=== PATIENT | female | born 1985 | race Caucasian/White ===

== ENCOUNTER 2016-04-27 20:06 | Emergency (ER) | payer OTHER ==
[2016-04-27] MEDS ORDERED: NITROGLYCERIN SL PRN (20:24)
[2016-04-27] MEDS ORDERED: ASPIRIN PO STA (20:24)
[2016-04-27 20:40] LABS: MANUAL DIFF NEEDED? NO
[2016-04-27 20:47] LABS: HEMATOCRIT 43.7 % (37.0-47.0); HEMOGLOBIN 14.4 g/dL (12.0-16.0); RBC 5.08 XMIL (4.2-5.4)
[2016-04-27 20:48] LABS: BASO% 0.4 % (0.0-0.8); EOS# 0.56 X1000 (0.0-0.7); EOS% 3.6 % (0.0-10.0); IMM GRAN# 0.05 X1000 (0.0-0.04); IMM GRAN% 0.3 % (0.0-0.5); LYMPH# 3.13 X1000 (1.2-3.4); LYMPH% 19.8 % (20.5-51.1); MCH 28.3 PG (27-31); MONO# 0.82 X1000 (0.11-0.59); MONO% 5.2 % (1.7-9.3); MPV 9.5 FL (7.4-10.4); NEUT% 70.7 % (42.2-75.2); PLT 372 X1000 (130-400)
[2016-04-27 20:58] LABS: INR 0.96; PTT 28.2 Seconds (22.0-36.0)
[2016-04-27 21:23] LABS: AGAP 13; ALBUMIN 3.9 g/dL (3.5-5.0); ALKALINE PHOSPHATASE 67 U/L (32-104); BUN 12 mg/dL (8-22); CALCIUM 8.8 mg/dL (8.8-10.2); CHLORIDE 98 mmol/L (98-107); CK PROFILE 46 U/L (24-173); COSMO 277; GOT 13 U/L (10-30); GPT 13 U/L (10-36); MAGNESIUM 2.1 mg/dL (1.5-2.7); POTASSIUM 4.6 mmol/L (3.5-5.1); SODIUM 134 mmol/L (136-145); TCO2 23 mmol/L (25-35); TOTAL BILIRUBIN 0.33 mg/dL (0.20-1.00)
[2016-04-27] MEDS ORDERED: PHENERGAN WITH CODEINE LIQUID PO ONE (21:35)
[2016-04-27] MEDS ORDERED: GLUCOPHAGE PO ONE (21:35)
[2016-04-27] MEDS ORDERED: TESSALON PO ONE (21:35)
[2016-04-27] MEDS ORDERED: FLEXERIL PO ONE (21:38)
--- NOTE | 2016-04-27 21:44 | PROVIDER DOCUMENTATION ---
HPI-Chest Pain <Consuelo Fernandes - Last Filed: 04/27/16 21:46> <Librado Carney - Last Filed: 04/28/16 04:54> - General Chief Complaint: Chest Pain Stated Complaint: CP, SOB Time Seen by Provider: 04/27/16 21:11 Allergies/Adverse Reactions: Patient Allergies Allergy/AdvReac Type Severity Reaction Status Date / Time pregabalin [From Lyrica] Allergy Severe SUICIDAL Verified 04/27/16 20:14 THOUGHTS tramadol AdvReac Severe HIVES Verified 04/27/16 20:14 diclofenac [Diclofenac] AdvReac HIVES Verified 04/27/16 20:14 Home Medications: Home Medication List Medication Instructions Recorded Confirmed Last Taken Type Benzonatate [Tessalon] 200 mg PO TID PRN PRN #30 capsule 04/27/16 Unknown Rx Codeine/Promethazine [Phenergan 10 ml PO TID PRN PRN #120 ml 04/27/16 Unknown Rx with Codeine] Cyclobenzaprine [Flexeril] 10 mg PO TID PRN #30 tablet 04/27/16 Unknown Rx Metformin [Glucophage] 500 mg PO BID CC #120 tablet 04/27/16 Unknown Rx - History of Present Illness-CP Nature of Presenting Problem: pt has had a cough for several day that has been dry and hacky without fever and then today developed anterior chest pain that is worse with coughing. She also added that she has not been taking her metformin for several months (Librado Morris) Review of Systems - Adult - REVIEW OF SYSTEMS - ADULT Constitutional: denies: chills, fever Eyes: denies: discharge Ears, Nose, Mouth & Throat: denies: ear pain, sinus problem, throat pain Cardiovascular: reports: chest pain. denies: palpitations Respiratory: reports: cough, wheezing. denies: shortness of breath Gastrointestinal: denies: abdominal pain, diarrhea, nausea, vomiting Genitourinary: denies: dysuria, frequency, flank pain Musculoskeletal: reports: neck pain. denies: muscle aches Integumentary: denies: rash Neurological: denies: headache/migraines, numbness Psychiatric: reports: no symptoms reported Endocrine: reports: no symptoms reported Hematologic/Lymphatic: reports: no symptoms reported Allergic/Immunologic: reports: no symptoms reported All Other Systems: Reviewed and Negative <Librado Carney - Last Filed: 04/28/16 04:54> Past History - Adult - PAST MEDICAL HISTORY-ADULT Review of Records: reports: Old Records Reviewed, Nursing Assessment Review, Medications Reviewed, Social history reviewed & non-contributory. Major Childhood Illnesses: reports: denies history Cardiovascular: reports: hyperlipidemia Respiratory: reports: denies history Gastrointestinal: reports: denies history Obstetrical/Gynecological: reports: denies history Genitourinary: reports: denies history Musculoskeletal: reports: denies history Neurological: reports: denies history Endocrine/Immune: reports: denies history, Diabetes Other Conditions: reports: denies history - PRIOR SURGERIES/PROCEDURES Surgical/Procedure History: reports: appendectomy, BTL, - PRIOR HOSPITALIZATIONS Prior Hospitalizations: reports: none - IMMUNIZATION STATUS Childhood Immunizations: UTD - FAMILY HISTORY Family History: reviewed, not pertinent - SOCIAL HISTORY Smoking: less than 1 pack/day Provider spent 3-5 mins advising pt. on dangers of tobacco.: Discussed manners to quit use, and f/u contacts for add'l counseling. Substance Use: none/never Living Situation: family <Librado Carney - Last Filed: 04/28/16 04:54> Physical Exam-General - PHYSICAL EXAM-ADULT Initial Vital Signs Reviewed: Yes - CONSTITUTIONAL General Appearance: appears well, alert, no apparent distress - EYES Eyes: pink conjunctivae - HEAD, EARS, NOSE, MOUTH & THROAT HENMT: normocephalic/atraumatic, pharynx normal - NECK Neck: non-tender, full range of motion, supple, normal inspection - RESPIRATORY Respiratory: lungs clear, normal breath sounds, no pleuratic chest pain, no respiratory distress, no accessory muscle use. negative: chest non-tender ( marked anterior chest wall tenderness) - CARDIOVASCULAR Cardiovascular: regular rate, rhythm, no edema, no murmur - GASTROINTESTINAL (ABDOMEN) Abdominal Exam: normal bowel sounds, non tender, soft, no organomegaly, no pulsatile mass - MUSCULOSKELETAL Back Exam: normal inspection, no CVA tenderness, no vertebral tenderness Extremity: non-tender, normal gait, normal inspection, no pedal edema, no calf tenderness - SKIN Integumentary: normal color, normal turgor, warm/dry - NEUROLOGIC Neurologic: grossly normal, no motor/sensory deficits - PSYCHIATRIC Psych/Mental Status: normal mood/affect, normal thought content, normal thought process, oriented x 3 <Librado Carney - Last Filed: 04/28/16 04:54> Progress - EKG 1 Time of EKG reading by physician:: 20:11 EKG Read and Signed by:: Librado Carney EKG Interpretation (*Must complete 3 of following elements*): Normal Rate: 84 Rhythm: NSR [place]: normal - XRAY 1 XRAY Study: Chest Impression: Normal XRAY Interpretation: NAD: Dr. Carney(ER MD) <Consuelo Fernandes - Last Filed: 04/27/16 21:46> <Librado Carney - Last Filed: 04/28/16 04:54> - PLAN OF CARE/RESULTS Progress/Plan/Lab Results: Laboratory Tests 04/27/16 04/27/16 04/27/16 20:19 20:19 20:19 WBC 15.77 H RBC 5.08 Hgb 14.4 Hct 43.7 MCV 86.0 MCH 28.3 MCHC 33.0 RDW Std Deviation 14.7 H Plt Count 372 MPV 9.5 Immature Gran % (Auto) 0.3 Neut % (Auto) 70.7 Lymph % (Auto) 19.8 L Young % (Auto) 5.2 Eos % (Auto) 3.6 Baso % (Auto) 0.4 Immature Gran # (Auto) 0.05 H Neut # (Auto) 11.14 H Lymph # (Auto) 3.13 Young # (Auto) 0.82 H Eos # (Auto) 0.56 Baso # (Auto) 0.07 PT INR PTT (Actin FS) D-Dimer Sodium 134 L Potassium 4.6 Chloride 98 Carbon Dioxide 23 L Anion Gap 13 BUN 12 Creatinine 0.8 Estimated GFR/1.73 m2 > 60 BUN/Creatinine Ratio 15 Glucose 253 H Calculated Osmolality 277 Calcium 8.8 Magnesium 2.1 Total Bilirubin 0.33 AST 13 ALT 13 Alkaline Phosphatase 67 Creatine Kinase 46 Troponin T < 0.010 Nxa-S-Hhpdhfndrvy Pept Total Protein 7.0 Albumin 3.9 Globulin 3.1 Albumin/Globulin Ratio 1.3 04/27/16 04/27/16 04/27/16 20:19 20:19 20:19 WBC RBC Hgb Hct MCV MCH MCHC RDW Std Deviation Plt Count MPV Immature Gran % (Auto) Neut % (Auto) Lymph % (Auto) Young % (Auto) Eos % (Auto) Baso % (Auto) Immature Gran # (Auto) Neut # (Auto) Lymph # (Auto) Young # (Auto) Eos # (Auto) Baso # (Auto) PT 10.0 INR 0.96 PTT (Actin FS) 28.2 D-Dimer 0.30 Sodium Potassium Chloride Carbon Dioxide Anion Gap BUN Creatinine Estimated GFR/1.73 m2 BUN/Creatinine Ratio Glucose Calculated Osmolality Calcium Magnesium Total Bilirubin AST ALT Alkaline Phosphatase Creatine Kinase Troponin T Bxh-P-Sdtlvssigie Pept 57 Total Protein Albumin Globulin Albumin/Globulin Ratio Orders Category Date Time Status Cardiac Monitoring DIRECTED Care 04/27/16 20:23 Active Cardiac Monitoring DIRECTED Care 04/27/16 20:24 Inactive Saline Loc NOW Care 04/27/16 20:23 Active Saline Loc NOW Care 04/27/16 20:24 Inactive CHEST-2 VIEWS [RAD] Stat Exams 04/27/16 20:23 Taken CBC WITH ELECTRONIC DIFF [HEME] Stat Lab 04/27/16 20:19 Completed CK PROFILE [SP CHEM] Stat Lab 04/27/16 20:19 Completed COMPREHENSIVE METABOLIC PANEL [CHEM] Stat Lab 04/27/16 20:19 Completed D-DIMER [CHEM] Stat Lab 04/27/16 20:19 Completed MAGNESIUM [CHEM] Stat Lab 04/27/16 20:19 Completed PRO B-NATRIURETIC PEPTIDE Stat Lab 04/27/16 20:19 Completed PROTIME WITH INR [COAG] Stat Lab 04/27/16 20:19 Completed PTT [COAG] Stat Lab 04/27/16 20:19 Completed TROPONIN T Stat Lab 04/27/16 20:19 Completed Aspirin Med 04/27/16 20:24 Discontinued 325 mg PO STAT STA Benzonatate [Tessalon] Med 04/27/16 21:35 Discontinued 200 mg PO NOW ONE Codeine/Promethazine [Phenergan with Codeine Liquid] Med 04/27/16 21:35 Discontinued 10 ml PO NOW ONE Cyclobenzaprine [Flexeril] Med 04/27/16 21:38 Discontinued 10 mg PO NOW ONE Metformin [Glucophage] Med 04/27/16 21:35 Discontinued 500 mg PO NOW ONE Nitroglycerin Sl [Nitroglycerin] Med 04/27/16 20:24 Discontinued 0.4 mg SL Q5M PRN PRN EKG [EKG] Stat Ther 04/27/16 20:14 Ordered Vital Signs Temp Pulse Resp BP Pulse Ox 04/27/16 22:28 72 20 139/102 100 04/27/16 20:15 98.6 F 87 18 141/83 99 pregabalin [From Lyrica] Allergy (Severe, Verified 04/27/16 20:14) SUICIDAL THOUGHTS tramadol Adverse Reaction (Severe, Verified 04/27/16 20:14) HIVES diclofenac [Diclofenac] Adverse Reaction (Verified 04/27/16 20:14) HIVES Benzonatate [Tessalon] 200 mg PO TID PRN PRN #30 capsule 04/27/16 Codeine/Promethazine [Phenergan with Codeine] 10 ml PO TID PRN PRN #120 ml 04/27 Cyclobenzaprine [Flexeril] 10 mg PO TID PRN #30 tablet 04/27/16 Metformin [Glucophage] 500 mg PO BID CC #120 tablet 04/27/16 Laboratory 04/27/16 04/27/16 04/27/16 20:19 20:19 20:19 WBC RBC Hgb Hct MCV MCH MCHC RDW Std Deviation Plt Count MPV Immature Gran % (Auto) Neut % (Auto) Lymph % (Auto) Young % (Auto) Eos % (Auto) Baso % (Auto) Immature Gran # (Auto) Neut # (Auto) Lymph # (Auto) Young # (Auto) Eos # (Auto) Baso # (Auto) PT 10.0 INR 0.96 PTT (Actin FS) 28.2 D-Dimer 0.30 Sodium Potassium Chloride Carbon Dioxide Anion Gap BUN Creatinine Estimated GFR/1.73 m2 BUN/Creatinine Ratio Glucose Calculated Osmolality Calcium Magnesium Total Bilirubin AST ALT Alkaline Phosphatase Creatine Kinase Troponin T Fxc-A-Tipxoporfov Pept 57 Total Protein Albumin Globulin Albumin/Globulin Ratio 04/27/16 04/27/16 04/27/16 20:19 20:19 20:19 WBC 15.77 H RBC 5.08 Hgb 14.4 Hct 43.7 MCV 86.0 MCH 28.3 MCHC 33.0 RDW Std Deviation 14.7 H Plt Count 372 MPV 9.5 Immature Gran % (Auto) 0.3 Neut % (Auto) 70.7 Lymph % (Auto) 19.8 L Young % (Auto) 5.2 Eos % (Auto) 3.6 Baso % (Auto) 0.4 Immature Gran # (Auto) 0.05 H Neut # (Auto) 11.14 H Lymph # (Auto) 3.13 Young # (Auto) 0.82 H Eos # (Auto) 0.56 Baso # (Auto) 0.07 PT INR PTT (Actin FS) D-Dimer Sodium 134 L Potassium 4.6 Chloride 98 Carbon Dioxide 23 L Anion Gap 13 BUN 12 Creatinine 0.8 Estimated GFR/1.73 m2 > 60 BUN/Creatinine Ratio 15 Glucose 253 H Calculated Osmolality 277 Calcium 8.8 Magnesium 2.1 Total Bilirubin 0.33 AST 13 ALT 13 Alkaline Phosphatase 67 Creatine Kinase 46 Troponin T < 0.010 Ryw-I-Ntvkxdrtgwe Pept Total Protein 7.0 Albumin 3.9 Globulin 3.1 Albumin/Globulin Ratio 1.3 (Librado Carney) Departure <Consuelo Fernandes - Last Filed: 04/27/16 21:46> - Departure Time of Disposition Order: 21:39 Certified Medical Emergency: Emergent <Librado Carney - Last Filed: 04/28/16 04:54> - Departure DIAGNOSIS: Costochondritis URI (upper respiratory infection) Qualifiers: URI type: unspecified viral URI Qualified Code(s): J06.9 - Acute upper respiratory infection, unspecified Type 2 diabetes mellitus Qualifiers: Diabetes mellitus complication status: without complication Diabetes mellitus termite technician insulin use: without termite technician use Qualified Code(s): E11.9 - Type 2 diabetes mellitus without complications Disposition: HOME 01 Condition: Fair Additional Instructions: [facility] Qualifications for [facility]: * Live in [place] * 18 - 64 years of age * Have no form of health insurance * Not covered by Medicaid, Medicare, Disability benefits or VA benefits * Meet the financial guidelines In order to be screened for services, patients must first call to answer a few questions and make a screening appt: Phone #: [phone] Services Provided by [facility]: * Primary Care: treatment for acute or chronic illness in adults * DIRECTOR STERILE PROCESSING exams * Blood work/ BP monitoring * Prescription meds (no controlled drugs) * Health education classes * Dental exams, x-rays and extractions Services that ARE NOT provided: * Orthopedic referrals * Pain management or narcotics * testing, control * Physicals or paperwork required by school, work or for legal proceedings * STD testing or treatment * Immunizations * Eye exams, hearing tests ED Follow Up Instructions: You have been treated by a care provider in the Emergency Department. These instructions are being provided to you so you can have an understanding of how to care for yourself upon discharge. Upon discharge from the Emergency Department, you are responsible for making arrangements for follow-up care by a physician of your choice. Take all prescribed medications as directed. Return to the Emergency Department immediately for any new or worsening symptoms. You may call the Physician Referral phone number at [phone] to obtain a list of Physicians who are taking new patients. Prescriptions: Cyclobenzaprine [Flexeril] 10 mg PO TID PRN #30 tablet PRN Reason: Spasms Metformin [Glucophage] 500 mg PO BID CC #120 tablet Codeine/Promethazine [Phenergan with Codeine] 10 ml PO TID PRN PRN #120 ml PRN Reason: Cough Benzonatate [Tessalon] 200 mg PO TID PRN PRN #30 capsule PRN Reason: Cough Referrals: Maritza Harrington [Primary Care Provider] - Forms: Return to School/Parent Work Instructions: Type 2 Diabetes Mellitus, Adult, Costochondritis, Iygx-[id number], Upper Respiratory Infection, Adult, [id number] Physician Attestation
--- NOTE | 2016-04-27 21:45 | PROVIDER DOCUMENTATION ---
HPI-Chest Pain - General Chief Complaint: Chest Pain Stated Complaint: CP, SOB Time Seen by Provider: 04/27/16 21:11 Source: patient Allergies/Adverse Reactions: Patient Allergies Allergy/AdvReac Type Severity Reaction Status Date / Time pregabalin [From Lyrica] Allergy Severe SUICIDAL Verified 04/27/16 20:14 THOUGHTS tramadol AdvReac Severe HIVES Verified 04/27/16 20:14 diclofenac [Diclofenac] AdvReac HIVES Verified 04/27/16 20:14 Home Medications: Home Medication List Medication Instructions Recorded Confirmed Last Taken Type Benzonatate [Tessalon] 200 mg PO TID PRN PRN #30 capsule 04/27/16 Unknown Rx Codeine/Promethazine [Phenergan 10 ml PO TID PRN PRN #120 ml 04/27/16 Unknown Rx with Codeine] Cyclobenzaprine [Flexeril] 10 mg PO TID PRN #30 tablet 04/27/16 Unknown Rx Metformin [Glucophage] 500 mg PO BID CC #120 tablet 04/27/16 Unknown Rx - History of Present Illness-CP Location: reports: substernal Chest Pain Radiation: reports: no radiation Quality of Pain: reports: aching Severity in ED: mild Onset/Duration: this morning Timing: still present Context/Activities at Onset: reports: none Modifying Factors: improves with: nothing Aspirin Treatment Today: 325 mg x 1, provided by ED Similar Symptoms Previously?: No Recently Seen Here or By Another Healthcare Provider: No Review of Systems - Adult - REVIEW OF SYSTEMS - ADULT Constitutional: denies: chills, fever Eyes: reports: no symptoms reported Ears, Nose, Mouth & Throat: denies: ear pain, throat pain Cardiovascular: reports: chest pain. denies: palpitations Respiratory: reports: cough. denies: shortness of breath Gastrointestinal: denies: abdominal pain, nausea, vomiting Genitourinary: reports: no symptoms reported Musculoskeletal: reports: no symptoms reported Integumentary: reports: no symptoms reported Neurological: reports: no symptoms reported Psychiatric: reports: no symptoms reported Endocrine: reports: no symptoms reported Hematologic/Lymphatic: reports: no symptoms reported Allergic/Immunologic: reports: no symptoms reported All Other Systems: Reviewed and Negative Past History - Adult - PAST MEDICAL HISTORY-ADULT Review of Records: reports: Nursing Assessment Review, Medications Reviewed Major Childhood Illnesses: reports: denies history Cardiovascular: reports: hyperlipidemia Respiratory: reports: denies history Gastrointestinal: reports: denies history Obstetrical/Gynecological: reports: denies history Genitourinary: reports: denies history Musculoskeletal: reports: denies history Neurological: reports: denies history Endocrine/Immune: reports: denies history, Diabetes Other Conditions: reports: denies history - PRIOR SURGERIES/PROCEDURES Surgical/Procedure History: reports: appendectomy, BTL, - PRIOR HOSPITALIZATIONS Prior Hospitalizations: reports: none - IMMUNIZATION STATUS Childhood Immunizations: UTD - FAMILY HISTORY Family History: reviewed, not pertinent - SOCIAL HISTORY Smoking: non-smoker Substance Use: none/never Alcohol Use Frequency: never Physical Exam-General - PHYSICAL EXAM-ADULT Initial Vital Signs Reviewed: Yes - CONSTITUTIONAL General Appearance: appears well, alert, no apparent distress - RESPIRATORY Respiratory: lungs clear, normal breath sounds, other (anterior chest wall tenderness) - CARDIOVASCULAR Cardiovascular: normal peripheral pulses, regular rate, rhythm, no edema - SKIN Integumentary: normal color, normal turgor, warm/dry - PSYCHIATRIC Psych/Mental Status: normal mood/affect, normal thought content, normal thought process, oriented x 3 Progress - EKG 1 Time of EKG reading by physician:: 20:11 EKG Read and Signed by:: Librado Carney EKG Interpretation (*Must complete 3 of following elements*): Normal Rate: 84 Rhythm: NSR [place]: normal - XRAY 1 XRAY Study: Chest Impression: Normal XRAY Interpretation: NAD: Dr. Carney Departure - Departure Prescriptions: Cyclobenzaprine [Flexeril] 10 mg PO TID PRN #30 tablet PRN Reason: Spasms Metformin [Glucophage] 500 mg PO BID CC #120 tablet Codeine/Promethazine [Phenergan with Codeine] 10 ml PO TID PRN PRN #120 ml PRN Reason: Cough Benzonatate [Tessalon] 200 mg PO TID PRN PRN #30 capsule PRN Reason: Cough Referrals: Maritza Harrington [Primary Care Provider] -
[2016-04-27 22:30] VITALS: BP 139/102
--- NOTE | 2016-04-28 05:18 | EKG Report ---
Test Performed on : 04/27/2016 8:11:30 PM Test Reason : CP Blood Pressure : / mmHG Vent. Rate : 084 BPM Atrial Rate : 084 BPM P-R Int : 122 ms QRS Dur : 070 ms QT Int : 364 ms P-R-T Axes : 067 037 031 degrees QTc Int : 430 ms Normal sinus rhythm. Normal ECG No previous ECGs available Unconfirmed Result
--- NOTE | 2016-04-28 08:22 | Diag Imaging Result Document ---
PROCEDURE NAME: CHEST-2 VIEWS - 04/27/2016 FRONTAL AND LATERAL CHEST, TWO VIEWS: FINDINGS: The lungs are well expanded. The heart is not enlarged. The vessels are not distended. No pneumonia. No pleural effusions. IMPRESSION: No acute abnormality.
== END 2016-04-27 22:30 | disposition home or self-care (01) ==
LOC: ED 20:06
DX: M94.0 Chondrocostal junction syndrome [Tietze] (principal); J06.9 Acute upper respiratory infection, unspecified; E11.9 Type 2 diabetes mellitus without complications; R07.9 Chest pain, unspecified; R05 Cough; R06.2 Wheezing; M54.2 Cervicalgia; E78.5 Hyperlipidemia, unspecified; F17.210 Nicotine dependence, cigarettes, uncomplicated; Z71.6 Tobacco abuse counseling
CPT/HCPCS: 36415; 71020; 80053; 82550; 83735; 83880; 84484; 85025; 85379; 85610; 85730; 93005; 99284